=== PATIENT | female | born 1970 | race African-American/Black ===

== ENCOUNTER 2018-06-20 10:58 | Emergency (ER) | payer SELFPAY ==
[~2018-06-20] VITALS: Ht 167.6 cm; Wt 124.0 kg
[2018-06-20] MEDS ORDERED: HYDROCODONE/ACETAMINOPHEN 5/325MG TABLET PO ONE (16:30)
[2018-06-20] MEDS ORDERED: SODIUM CHLORIDE 0.9% 1,000 ML IV ONE (17:54)
[2018-06-20 19:45] VITALS: BP 145/98
== END 2018-06-20 20:25 | disposition home or self-care (01) ==
LOC: ER 10:58
DX: M50.90 Cervical disc disorder, unspecified, unspecified cervical region (principal); Z90.49 Acquired absence of other specified parts of digestive tract
CPT/HCPCS: 72040; 72070; 72125; 99284; J7030